=== PATIENT | female | born 1990 | race Two or more races ===

== ENCOUNTER 2017-02-08 14:52 | Emergency (ER) | payer OTHER ==
[~2017-02-08] VITALS: Ht 160 cm; Wt 93.0 kg
[2017-02-08 15:05] VITALS: BP 154/102
--- NOTE | 2017-02-08 15:13 | Emergency Room Report ---
History of Present Illness General Chief Complaint: Laceration Source: Patient Present Illness HPI Patient is a 18-year-old female presents today with complaint of a laceration to the right thumb the right thumb. She works at a [employer] and was cutting a sandwich when she sliced the posterior aspect of the right month. She states pain is 4/10 in severity and has not taken medications for it. Then she denies any numbness, tingling, loss of sensation. She is unsure of her last tetanus shot. Allergies: Coded Allergies: No Known Allergies (Unverified , 02/08/17) Patient History Reviewed Nursing Documentation: PMH: Agreed, PSxH: Agreed Nursing Documentation-PMH Past Medical History: No History, Except For Hx Cardiac Problems: No - HYPOTHYROIDISM Review of Systems Skin: Reports: other - laceration All Other Systems: negative except mentioned in HPI Physical Exam Vital Signs Date Time Temp Pulse Resp B/P (MAP) Pulse Ox O2 Delivery O2 Flow Rate FiO2 02/08/17 14:59 98.1 73 20 160/118 99 Room Air Sp02 EP Interpretation: reviewed, normal General Appearance: no apparent distress, alert, GCS 15, non-toxic Head: normocephalic, atraumatic Eyes: bilateral eye normal inspection, bilateral eye PERRL ENT: hearing grossly normal, normal pharynx, no angioedema, normal voice Neck: full range of motion, supple/symm/no masses Respiratory: chest non-tender, lungs clear, normal breath sounds, speaking full sentences Cardiovascular #1: regular rate, rhythm, no edema Cardiovascular #2: 2+ carotid (R), 2+ carotid (L), 2+ radial (R), 2+ radial (L) , 2+ dorsalis pedis (R), 2+ dorsalis pedis (L) Gastrointestinal: normal bowel sounds, non tender, soft, non-distended, no guarding, no rebound Rectal: deferred Genitourinary: normal inspection, no CVA tenderness Musculoskeletal: back normal, gait/station normal, normal range of motion, non- tender, calf tenderness Neurologic: alert, oriented x3, responsive, motor strength/tone normal, sensory intact, speech normal Psychiatric: judgement/insight normal, memory normal, mood/affect normal, no suicidal/homicidal ideation Reflexes: 3+ bicep (R), 3+ bicep (L), 3+ tricep (R), 3+ tricep (L), 3+ knee (R) , 3+ knee (L) Skin: normal color, no rash, warm/dry, well hydrated, laceration - 2 cm laceration to dorsal aspect of right thumb Lymphatic: no adenopathy Procedures Laceration/Wound Repair Laceration/Wound Repair : Consent: Verbal Wound Location: other - right thumb Wound Explored: clean Irrigated w/ Saline (ccs): 30 Betadine Prep?: Yes Anesthesia: 1% Lidocaine Wound Debrided: minimal Wound Repaired With: sutures Number of Sutures: 6 Layer Closure?: No Sterile Dressing Applied?: Yes Splint Applied?: No Sling Applied?: No Patient Tolerated: Well Complications: None Progress Patient achieved about risk of scarring. Instructed to have sutures removed in 7-10 days. Medical Decision Making PA Attestation Supervising physician is Dr. Goldsmith Diagnostic Impression: Primary Impression: Laceration of thumb ER Course Patient found to have a laceration of her right, which is closed with 6 sutures. The patient educated about risk of scarring. Her tetanus is updated in the emergency room. Instructed to return in 7-10 days suture removal. Patient understands and agree with plan. Last Vital Signs Date Time Temp Pulse Resp B/P (MAP) Pulse Ox O2 Delivery O2 Flow Rate FiO2 02/08/17 15:05 98.2 76 18 154/102 100 Room Air Status: improved Disposition: HOME, SELF-CARE Condition: Stable Annalisa Montano Feb 08, 2017 15:13
[2017-02-08] MEDS ORDERED: Tetanus/Diptheria/Pertussis Vaccine 0.5ml Syr IM ONE (15:15)
[2017-02-08] MEDS ORDERED: Bacitracin Oint UD TOPIC ONE ×2 (15:52→16:00)
[2017-02-08] MEDS ORDERED: Bacitracin Oint 15gm Tube TOPIC ONE (16:00)
[2017-02-09] MEDS ORDERED: BACITRACIN ZIN1 EACH TOPIC (11:24)
== END 2017-02-08 16:02 | disposition home or self-care (01) ==
LOC: EMR 15:56
DX: S61.011A Laceration without foreign body of right thumb without damage to nail, initial encounter (principal); Z23 Encounter for immunization; W45.8XXA Other foreign body or object entering through skin, initial encounter; Y93.9 Activity, unspecified; Y99.0 Civilian activity done for income or pay
CPT/HCPCS: 90471; 90715; 99284

== ENCOUNTER 2017-02-09 10:47 | Emergency (ER) | payer OTHER ==
[~2017-02-09] VITALS: Ht 160 cm; Wt 93.0 kg
[2017-02-09] MEDS ORDERED: BACITRACIN ZIN1 EACH TOPIC (11:24)
[2017-02-09] MEDS ORDERED: Bacitracin Oint UD TOPIC ONE (11:30)
[2017-02-09 11:40] VITALS: BP 134/67
--- NOTE | 2017-02-09 14:26 | Emergency Room Report ---
History of Present Illness General Chief Complaint: Wound Recheck/Suture Removal Source: Patient Present Illness HPI Patient is a 26 year-old female who presented after increased swelling to a recently sutured wound. Patient had prior injury to her right thumb. The patient presented for wound check. The patient had not been having any fever. She was unsure if would need for suturing. She denies severe pain. She had not been using antibiotics. Allergies: Coded Allergies: No Known Allergies (Unverified , 02/08/17) Patient History Last Menstrual Period: 3 weeks Now: No Reviewed Nursing Documentation: PMH: Agreed, PSxH: Agreed Nursing Documentation-PM Past Medical History: No History, Except For Hx Cardiac Problems: No - HYPOTHYROIDISM Review of Systems All Other Systems: negative except mentioned in HPI Physical Exam Vital Signs Date Time Temp Pulse Resp B/P (MAP) Pulse Ox O2 Delivery O2 Flow Rate FiO2 02/09/17 10:48 99.0 69 18 165/104 98 Room Air General Appearance: well appearing, no apparent distress, alert, GCS 15 Head: normocephalic, atraumatic ENT: hearing grossly normal, normal voice Neck: full range of motion, supple Respiratory: no respiratory distress, speaking full sentences Musculoskeletal: no calf tenderness Neurologic: normal inspection, alert, oriented x3, normal gait Psychiatric: mood/affect normal Skin: no rash, laceration - healing laceration no erythema or infection Medical Decision Making Diagnostic Impression: Primary Impression: Visit for wound check ER Course Patient presented for wound check. Differential diagnosis included was not limited to infected wound, nonhealed wound, neuroma, healed wound. Patient's benign exam and does not appear to require any further imaging or laboratory testing at this time. The patient's wound does not appear to require suturing at this time it does not appear to be infected.The patient is advised to follow up with primary care doctor in 1-2 days. Patient is advised to return if any worsening condition or if any changes in status that are concerning. Last Vital Signs Date Time Temp Pulse Resp B/P (MAP) Pulse Ox O2 Delivery O2 Flow Rate FiO2 02/09/17 11:40 98.0 16 134/67 100 Room Air 02/09/17 11:40 62 Status: improved Disposition: HOME, SELF-CARE Condition: Improved Scripts Bacitracin Zinc* (BACITRACIN ZINC*) 1 Each Packet 1 APPLIC TOPIC THREE TIMES A DAY, #14 PACKET Prov: Erick Powers 02/09/17 Referrals: NOT CHOSEN IPA/MD,REFERRING (PCP) Patient Instructions: Wound Check Erick Powers Feb 09, 2017 14:26
== END 2017-02-09 11:40 | disposition home or self-care (01) ==
LOC: EMR 11:21
DX: S61.011D Laceration without foreign body of right thumb without damage to nail, subsequent encounter (principal); X58.XXXD Exposure to other specified factors, subsequent encounter; E03.9 Hypothyroidism, unspecified
CPT/HCPCS: 99283

== ENCOUNTER 2017-02-15 19:33 | Emergency (ER) | payer OTHER ==
[~2017-02-15] VITALS: Ht 160 cm; Wt 93.0 kg
[~2017-02-15 19:33] MED LIST: BACITRACIN ZIN1 EACH TOPIC
[2017-02-15] MEDS ORDERED: NKM (19:41)
--- NOTE | 2017-02-15 19:57 | Emergency Room Report ---
History of Present Illness General Chief Complaint: Wound Recheck/Suture Removal Source: Patient Present Illness HPI 18-year-old female no significant past medical history here for suture removal Patient has sutures on her right thumb after cutting herself with a knife, occurred 8 days ago. No other complaints No pain or purulent drainage from site Allergies: Coded Allergies: No Known Allergies (Unverified , 02/08/17) Patient History Past Medical History: see triage record Past Surgical History: none Pertinent Family History: none Last Menstrual Period: 02/11/17 Now: No Reviewed Nursing Documentation: PMH: Agreed, PSxH: Agreed Nursing Documentation-PMH Past Medical History: No History, Except For Hx Cardiac Problems: No - HYPOTHYROIDISM Review of Systems All Other Systems: negative except mentioned in HPI Physical Exam Vital Signs Date Time Temp Pulse Resp B/P (MAP) Pulse Ox O2 Delivery O2 Flow Rate FiO2 02/15/17 19:37 98.2 80 17 150/98 99 Room Air Sp02 EP Interpretation: reviewed, normal General Appearance: normal inspection, well appearing, no apparent distress, alert, GCS 15, non-toxic Head: normocephalic, atraumatic Eyes: bilateral eye normal inspection, bilateral eye PERRL, bilateral eye EOMI ENT: normal ENT inspection, normal pharynx, normal voice, moist mucus membranes Neck: normal inspection, full range of motion, supple Respiratory: normal inspection, lungs clear, normal breath sounds, no respiratory distress, no retraction, no wheezing, speaking full sentences, chest symmetrical Cardiovascular #1: normal inspection, regular rate, rhythm, no edema, normal capillary refill Cardiovascular #2: 2+ radial (R), 2+ radial (L) Gastrointestinal: normal inspection, non tender, soft Musculoskeletal: back normal, normal range of motion, non-tender Neurologic: normal inspection, alert, oriented x3, responsive, motor strength/ tone normal, sensory intact, normal gait, speech normal Psychiatric: normal inspection, judgement/insight normal, memory normal Skin: well hydrated, normal turgor, other - R thumb with 6 sutures, no wound dehiscence, nontender, no purulent drainage Procedures Additional Procedure Procedure Narrative Procedure: Suture removal 6 sutures removed without any complication Patient tolerated procedure well Medical Decision Making Diagnostic Impression: Primary Impression: Encounter for removal of sutures ER Course 18-year-old female for suture removal Plan: Suture removal Disposition: Patient is to be discharged to home. Patient is instructed to follow up with their primary care doctor within 5 days. Please note that this Emergency Department Report was dictated using [employer] pilot technology software, occasionally this can lead to erroneous entry secondary to interpretation by the dictation equipment Last Vital Signs Date Time Temp Pulse Resp B/P (MAP) Pulse Ox O2 Delivery O2 Flow Rate FiO2 02/15/17 19:37 98.2 80 17 150/98 99 Room Air Disposition: HOME, SELF-CARE Condition: Improved Jennie Duncan M.D. Feb 15, 2017 19:57
[2017-02-15 20:15] VITALS: BP 150/98
== END 2017-02-15 20:15 | disposition home or self-care (01) ==
LOC: EMR 20:08
DX: Z48.02 Encounter for removal of sutures (principal); E03.9 Hypothyroidism, unspecified
CPT/HCPCS: 99281